=== PATIENT | female | born 1945 | race Caucasian/White ===

== ENCOUNTER 2022-02-19 14:44 | Emergency (ER) | payer OTHER ==
[2022-02-19 15:27] LABS: EOSINOPHIL 2.1 % (0-7); HCT 38.8 % (37.0-47.0); HGB 12.9 g/dl (12.5-16.0); MCH 29.6 pg (25.0-31.0); MCHC 33.2 g/dL (32.0-36.0); MONOCYTE 9.4 % (0-12); MPV 10.8 fL (6.0-9.5); NEUTROPHIL 56.3 % (41-80); NRBC 0; PLT 221 K/uL (150-400); RBC 4.36 M/uL (4.20-5.40); RDW 12.8 % (11.5-14.0); WBC 5.2 K/uL (4.0-10.5)
[2022-02-19 15:49] LABS: ALBUMIN 3.8 g/dL (3.4-5.0); BILIRUBIN - TOTAL 0.5 mg/dL (0.2-1.0); BUN/CREAT RATIO (CALC) 15.3 RATIO; CREATININE 1.11 mg/dL (0.51-0.95); GLOBULIN (CALCULATION) 3.3 g/dL; POTASSIUM 3.6 mmol/L (3.5-5.1); TOTAL PROTEIN 7.1 g/dL (6.4-8.2)
[2022-02-19 15:51] LABS: INR 1.18 (0.9-1.2); PROTHROMBIN TIME 14.4 SECONDS (11.8-13.4)
== END 2022-02-19 21:25 | disposition other institution (70) ==
LOC: FER 14:44
PROVIDERS: Emergency Medicine
DX: I25.110 Atherosclerotic heart disease of native coronary artery with unstable angina pectoris (principal); I48.91 Unspecified atrial fibrillation; I50.9 Heart failure, unspecified; Z79.82 Long term (current) use of aspirin; Z79.01 Long term (current) use of anticoagulants; Z79.899 Other long term (current) drug therapy; Z95.5 Presence of coronary angioplasty implant and graft; Z88.0 Allergy status to penicillin; Z88.1 Allergy status to other antibiotic agents; Z88.5 Allergy status to narcotic agent; Z88.8 Allergy status to other drugs, medicaments and biological substances
CPT/HCPCS: 36415; 36600; 71045; 71275; 80053; 82803; 83880; 84484; 85025; 85610; 85730; 93005; J1940; J2270; J2405; Q9967